=== PATIENT | male | born 1990 | race Caucasian/White ===

== ENCOUNTER 2016-10-23 23:07 | Emergency (ER) | payer MEDICAID, OTHER, SELFPAY ==
[~2016-10-23] VITALS: Ht 167.6 cm; Wt 90.7 kg
[2016-10-23] MEDS ORDERED: SUBO8MIS (23:41)
[2016-10-24] MEDS ORDERED: NAPR500T PO (01:26)
[2016-10-24] MEDS ORDERED: NAPROXEN 250 MG TAB PO ONE (01:30)
[2016-10-24 01:37] VITALS: BP 133/56
== END 2016-10-24 01:38 | disposition home or self-care (01) ==
LOC: M ED 10-24 00:16
DX: S46.912A Strain of unspecified muscle, fascia and tendon at shoulder and upper arm level, left arm, initial encounter (principal); X58.XXXA Exposure to other specified factors, initial encounter; Y92.89 Other specified places as the place of occurrence of the external cause; Y93.E3 Activity, vacuuming; Y99.8 Other external cause status; F11.20 Opioid dependence, uncomplicated; F12.90 Cannabis use, unspecified, uncomplicated; Z79.899 Other long term (current) drug therapy; F17.210 Nicotine dependence, cigarettes, uncomplicated